=== PATIENT | female | born 1935 | race Caucasian/White ===

== ENCOUNTER 2019-10-20 14:29 | Emergency (ER) | payer MEDICARE, OTHER, SELFPAY ==
--- NOTE | ~2019-10-20 | CT_ITS ---
EXAMINATION: CT cervical spine wo con DATE: 10/20/2019 15:16 INDICATION: Neck pain TECHNIQUE: Computed tomography (CT) of the cervical spine was performed without intravenous contrast. The dose-length product (DLP) was 397.32 mGy-cm. Automated exposure control and iterative reconstruc tion technique were employed. COMPARISON: 05/09/2012 FINDINGS: There is no fracture. Bone alignment is normal. The vertebral body heights are maintained. There is severe loss of intervertebral disc space height throughout the cervical spine. Mild to moder ate multilevel facet and uncovertebral joint osteoarthritis is noted. The odontoid is intact. Posteri or disc/osteophyte complexes result in moderate to severe central stenosis canal stenosis at multiple levels. The prevertebral soft tissues are normal. There is a small right pleural effusion. IMPRESSION: 1. Severe cervical spondylosis without acute findings. Reviewed, dictated and finalized at location A.
--- NOTE | ~2019-10-20 | CT_ITS ---
EXAMINATION: CT brain wo con INDICATION: Head injury COMPARISON: None TECHNIQUE: Standard unenhanced head CT. The dose-length product (DLP) was 681.00 mGy-cm. The mA was a djusted according to patient size. Iterative reconstruction technique was employed. FINDINGS: There is soft tissue swelling of the posterior parietal scalp. There is a lenticular extra- axial fluid collection posteriorly adjacent to the right parietal lobe. There is acute subarachnoid h emorrhage in the bilateral frontal lobes as well as the right temporal lobe. There are also tiny foci of extra-axial hemorrhage anterior to the left frontal lobe. No evidence of mass lesion. No evidence of acute infarction. There is mild periventricular and subcortical hypodensity probably related to s mall vessel ischemic disease. There is mild prominence of the sulci and ventricles related to cerebra l atrophy. Intracranial calcified cerebral atherosclerosis is noted. The orbits and soft tissues are unremarkable. The visualized sinuses and mastoid air cells are well aerated. IMPRESSION: 1. Findings concerning for epidural hematoma posterior to the right parietal lobe. Neurosurgical eval uation is recommended. 2. Traumatic subarachnoid hemorrhage involving the frontal lobes and right temporal lobe. These findings and recommendations were discussed with Dr. Pawan Carbone DO in the Emergency Dep artment at 1530 hours on 10/20/2019. Reviewed, dictated and finalized at location A. IMPRESSION: 1. Findings concerning for epidural hematoma posterior to the right parietal lo be. Neurosurgical evaluation is recommended. 2. Traumatic subarachnoid hemorrhage involving the frontal lobes and right temp oral lobe. These findings and recommendations were discussed with Mariya Grullon in the Emergency Department at 1530 hours on 10/20/2019.
--- NOTE | 2019-10-20 14:33 | ECG_ITS ---
Measurements Intervals [place] Rate: 74 P: DC: 0 QRS: -6 QRSD: 119 T: 84 QT: 411 QTc: 456 Interpretive Statements ATRIAL FIBRILLATION INTRAVENTRICULAR CONDUCTION DELAY DELAYED PRECORDIAL R/S TRANSITION NONSPECIFIC ST & T-WAVE ABNORMALITY- LATERAL LEADS ABNORMAL ECG Electronically Signed On 10-21-2019 8:06:39 CDT by Beka Huff D.O.
[2019-10-20] MEDS: MORPHINE SULFATE 4 MG/ML INJ IV PUSH (14:45)
[2019-10-20 14:48] LABS: Basophils Absolute Auto 0.04 K/mm3 (0.00-0.10); Basophils Percent Auto 0.4 % (0.0-1.0); Eosinophils Absolute Auto 0.19 K/mm3 (0.02-0.50); Eosinophils Percent Auto 1.9 % (1.0-6.0); Hematocrit 35.4 % (35.0-42.0); Hemoglobin 11.6 g/dL (11.7-13.8); Immature Granulocyte Absolute 0.08 K/mm3 (0.00-0.00); Immature Granulocyte Percent A 0.8 % (0.0-0.0); Lymphocytes Absolute Auto 2.82 K/mm3 (1.10-4.50); Lymphocytes Percent Auto 28.4 % (18.0-42.0); Mean Corpuscular HGB Conc 32.8 g/dL (32.0-36.0); Mean Corpuscular Hemoglobin 30.3 pg (27.0-31.0); Mean Corpuscular Volume 92.4 fL (78.0-102.0); Mean Platelet Volume 11.1 fl (9.2-11.8); Monocytes Absolute Auto 0.62 K/mm3 (0.10-0.90); Monocytes Percent Auto 6.2 % (2.0-11.0); Neutrophils Absolute Auto 6.2 K/mm3 (1.7-7.2); Neutrophils Percent Auto 62.3 % (50.0-70.0); Platelet Count Result 151 K/mm3 (150-420); Red Blood Count 3.83 M/mm3 (4.20-5.40); Red Cell Distribution Width 14.6 % (11.6-14.4); White Blood Count 9.9 K/mm3 (4.8-10.8)
[2019-10-20] MEDS: ONDANSETRON INJ 4 MG/2 ML VIAL IV PUSH ×2 (14:48→16:11)
[2019-10-20 15:00] VITALS: BP 172/72; PULSE 84; RESP 14; TEMP 36.7; O2SAT 99
[2019-10-20 15:09] LABS: Alanine Aminotransferase 28 U/L (14-59); Albumin Level 3.1 g/dL (3.4-5.0); Alkaline Phosphatase 87 U/L (46-116); Anion Gap 15.3 mmol/L (7-16); Aspartate Amino Transferase 25 U/L (15-37); Bilirubin,Total 0.4 mg/dL (0.00-1.00); Blood Urea Nitrogen 52 mg/dL (7-18); Calcium 8.2 mg/dL (8.5-10.1); Carbon Dioxide 22 mmol/L (21-32); Chloride 105 mmol/L (98-108); Estimated Glomerular Filt Rate 26; Glucose 341 mg/dL (70-99); Osmolality Calculated 313 mOsm/kg (285-295); Potassium 4.3 mmol/L (3.5-5.1); Sodium 138 mmol/L (136-145); Total Protein 6.6 g/dL (6.4-8.2)
[2019-10-20 15:10] LABS: BNP 498 pg/mL (0-100)
[2019-10-20 15:11] LABS: Troponin I < 0.02 ng/mL (0.00-0.056)
[2019-10-20 15:14] LABS: Prothrombin Time 52.5 Seconds (9.64-11.0)
[2019-10-20 15:15] LABS: INR 5.4
--- NOTE | 2019-10-20 15:43 | ED.FALL ---
HPI - Fall General Chief Complaint: Fall Stated Complaint: Ambulance Time Seen by Provider: 10/20/19 14:33 History of Present Illness HPI Narrative: Irma was brought to the emergency department from the senior living after a fall. She had an unwitnessed fall. She does not remember before or after the fall which is not her normal as she is normally altert and oriented x 3. she had a large hematoma and contusion on the back of her head, and had nausea and vomiting. she admits to headache, nausea, vomiting but denies chest pain, shortness of breath and other abdominal symptoms. Related Data Home Medications Medication Instructions Recorded Confirmed furosemide [Lasix] 40 mg PO DAILY 10/20/19 10/20/19 insulin glargine [Lantus U-100 25 unit SUBCUT HS 10/20/19 10/20/19 Insulin] levothyroxine 88 mcg PO DAILY 10/20/19 10/20/19 metoprolol tartrate 50 mg PO Q12H 10/20/19 10/20/19 nitroglycerin [Nitro-Dur] 1 patch TRANSDERMAL Q24H 10/20/19 10/20/19 nitroglycerin [Nitrostat] 0.4 mg SUBLINGUAL Q5MIN PRN 10/20/19 10/20/19 pravastatin [Pravachol] 40 mg PO DAILY 10/20/19 10/20/19 ranitidine HCl [Zantac] 150 mg PO DAILY 10/20/19 10/20/19 valsartan [Diovan] 80 mg PO DAILY 10/20/19 10/20/19 warfarin 3 mg PO DAILY 10/20/19 10/20/19 Review of Systems Constitutional: Constitutional: Denies chills and Denies fever(s) Eyes: Eyes: Reports no additional eye complaints ENT: Reports system reviewed and no additional complaints, except as documented Cardiovascular: Cardiovascular: Reports no additional cardiovascular complaints Respiratory: Respiratory: Reports no additional respiratory complaints Gastrointestinal: Gastrointestinal: Reports no additional gastrointestinal complaints Genitourinary: Genitourinary: Reports no additional female genitourinary complaints Musculoskeletal: Musculoskeletal: Reports no additional musculoskeletal complaints Integumentary/Breasts: Skin/Breast: Reports system reviewed and no additional complaints, except as docu Neurologic: Reports as per HPI Psychiatric: Psychiatric: Reports no additional psychiatric complaints Endocrine: Endocrine: Reports no additional endocrine complaints Hematologic/Lymphatic: Hematologic/Lymphatic: Reports no additional hematologic/lymphatic complaints Allergic/Immunologic: Allergic/Immunologic: Reports no additional allergic/immunologic complaints Exam Const: General: alert Orientation/consciousness: patient oriented x3 Other: She was lying in bed and mild distress vomiting into a bag. HENMT: Other: contusion on the posterior aspect of her head but otherwise atraumatic and normocephalic Eyes: Conjunctivae: conjunctivae normal Pupils: Equal, round and reactive pupils present Neck: Neck: normal visual inspection Other: was able to touch her chin to both shoulders without pain as well as fully extended hyperflexion neck without pain Chest: Chest palpation & inspection: normal inspection of the chest Resp: Effort & Inspection: normal respiratory effort Auscultation: clear to auscultation bilaterally Cardio: Rate: regular rate Rhythm: regular rhythm GI: Auscultation: normal bowel sounds Skin: General skin exam: normal color Rashes: no rashes Neuro: General: patient oriented x3 and moves all extremities Other: Cranial nerves 2-12 intact as tested, was able to repeat 3 words immediately and after a few minutes. Was unable to say the months of the year backwards. Extrem: General: normal to inspection Psych: Mental Status: mental status grossly normal Course Course Emergency Course: Irma was seen and evaluated. Ordered labs as well as CT head and spine. Labs were significant for an INR of 5.4, Cr. of 1.87, BNP of 498, and HbB of 11.6. Vitamin K was ordered. CT revealed intracranial hemorrhage. EXAMINATION: CT brain wo con INDICATION: Head injury COMPARISON: None TECHNIQUE: Standard unenhanced head CT. The dose-length product (DLP) was 681.00 mGy-cm.
[2019-10-20] MEDS: PHYTONADIONE ADULT INJ 10 MG in DEXTROSE 5% IN WATER 50 ML 100 MG IVPB (16:00)
[2019-10-20 16:30] VITALS: BP 156/82; PULSE 87; RESP 14; O2SAT 99
== END 2019-10-20 16:30 | disposition short-term general hospital (02) ==
PROVIDERS: Emergency Provider Family Medicine; PCP Family Medicine
DX: I61.9 Nontraumatic intracerebral hemorrhage, unspecified (principal); I48.91 Unspecified atrial fibrillation; Z79.01 Long term (current) use of anticoagulants; I25.10 Atherosclerotic heart disease of native coronary artery without angina pectoris; E78.5 Hyperlipidemia, unspecified; E03.9 Hypothyroidism, unspecified; W19.XXXA Unspecified fall, initial encounter
CPT/HCPCS: 36415; 70450; 72125; 80053; 83880; 84484; 85025; 85610; 93005; 96365; 96375; 96376; 99283; 99285; J2270; J2405